=== PATIENT | male | born 1970 | race Caucasian/White ===

== ENCOUNTER → 2023-07-27 10:51 | Outpatient (CLI) | payer OTHER, SELFPAY ==
--- NOTE | 2023-07-27 | DI.MRI.S_ITS ---
PROCEDURE: MR CERVICAL SPINE WO CON INDICATIONS: Paresthesia of skin TECHNIQUE: Noncontrast sagittal T1 spin echo and T2 fast spin echo, sagittal STIR, foraminal oblique sagittal T2 fast spin echo, and axial gradient echo or T2 fast spin echo through the cervical spine. COMPARISON: None. FINDINGS: Image quality: Diagnostic. Alignment and Curvature: There is normal bony alignment. Bone Marrow: Marrow demonstrates normal overall signal. Spinal Cord: Visualized spinal cord has normal size and signal. No cerebellar tonsillar herniation. Paraspinous Soft Tissues: No paravertebral masses. Prevertebral soft tissues are normal in thickness. C2-C3: No significant neuroforaminal or spinal canal stenosis. C3-C4: Minimal loss of disc signal intensity. Degenerative endplate changes. Mild bilateral uncovertebral osteoarthrosis. Shallow broad-based posterior disc osteophyte complex. There is mild spinal canal stenosis. No cord signal abnormality. Mild-moderate bilateral neural foraminal stenosis. C4-C5: Mild degenerative endplate changes. Bilateral facet arthropathy. Bilateral uncovertebral osteoarthrosis. Small broad-based posterior disc osteophyte complex with more focal eccentric to the right disc protrusion . Combination of findings result in moderate-severe spinal canal stenosis. Moderate bilateral neuroforaminal stenosis. No cord signal abnormalities. C5-C6: Mild degenerative endplate changes. Bilateral uncovertebral osteoarthrosis and mild bilateral facet arthropathy. Broad-based posterior disc osteophyte complex with minimal central posterior disc protrusion. Findings result in effacement of the anterior thecal sac, moderate spinal canal stenosis, and mild-moderate bilateral neuroforaminal stenosis. No cord signal abnormalities. C6-C7: Degenerative endplate changes. Bilateral facet arthropathy. Bilateral uncovertebral osteoarthrosis. Slightly eccentric to the left broad-based posterior disc osteophyte complex. There is effacement of the anterior thecal sac with mild spinal canal stenosis. There is left greater than right moderate-severe bilateral neuroforaminal stenosis. C7-T1: Mild degenerative endplate changes. Shallow broad-based posterior disc osteophyte complex. No significant neuroforaminal or spinal canal stenosis. IMPRESSION: Cervical spine without acute abnormalities. Moderate multilevel, multifactorial cervical spondylosis as detailed above by vertebral body level. Findings are most pronounced from C4-5 through C6-7. No cord signal abnormalities. Dictated by: Kailash Leon M.D. on 07/30/2023 at 9:28 Approved by: Kailash Leon M.D. on 07/30/2023 at 9:42
== END ==
PROVIDERS: Referring Provider Preventive Medicine Aerospace Medicine; Visit Provider Preventive Medicine Aerospace Medicine
DX: M47.812 Spondylosis without myelopathy or radiculopathy, cervical region (principal); R20.2 Paresthesia of skin
CPT/HCPCS: 72141

== ENCOUNTER 2023-12-07 13:15 | Emergency (ER) | payer OTHER, SELFPAY ==
[2023-12-07 13:20] VITALS: BP 165/87; PULSE 65; RESP 16; TEMP 36.6; O2SAT 98; BMI 28.5
--- NOTE | 2023-12-07 13:23 | DI.RAD.S_ITS ---
PROCEDURE: XR KNEE LT 3V INDICATIONS: injury/felt pop TECHNIQUE: 3 views of the knee were acquired. COMPARISON: None. FINDINGS: Bones: No fractures or dislocations. No suspicious bony lesions. Mild tricompartmental knee joint degeneration. Soft tissues: No joint effusion. No suspicious soft tissue calcifications. IMPRESSION: 1. No acute bony abnormality or significant effusion. 2. Mild degenerative joint disease. Dictated by: Kassidy Forman M.D. on 12/07/2023 at 13:48 Approved by: Kassidy Forman M.D. on 12/07/2023 at 13:48
--- NOTE | 2023-12-07 14:25 | ED_ITS ---
HPI - Extremity Injury (Lower) <Consuelo Tsai PA-C - Last Filed: 12/07/23 14:57> General Chief Complaint: Extremity Injury, Lower Stated Complaint: tweaked left knee yesterday Time Seen by Provider: 12/07/23 13:38 Mode of arrival: Ambulatory History of Present Illness HPI Narrative: 53-year-old male here with an injury to his left knee. States he was playing when he pivoted and felt a pop in his left knee along with some pain. He rested for a few minutes and then went back to play again in realize that he could not continue playing. he is able to walk but states it is painful. Denies instability. Denies clicking or popping. Denies prior injury to the affected knee. He has not tried taking any medication. He did not fall on his knee and denies any other trauma to the knee. Related Data Allergies Allergy/AdvReac Type Severity Reaction Status Date / Time No Known Drug Allergies Allergy Verified 12/07/23 13:22 Review of Systems <SHERRY Epstein Last Filed: 12/07/23 14:57> Review of Systems ROS Unobtainable: All systems reviewed & are unremarkable except as noted in HPI and below Patient History <Consuelo Tsai PA-C - Last Filed: 12/07/23 14:57> Social History Smoking Status: Former smoker Smoking Status: Former smoker Substance Use Type: does not use Exam <SHERRY Epstein Last Filed: 12/07/23 14:57> Narrative Exam Narrative: GENERAL: Well-developed, well-nourished, appears stated age. In no acute distress HEAD: Atraumatic. Normocephalic. EYES: Pupils equal round and reactive. Extraocular motions intact. No scleral icterus. No injection or drainage. ENT: Nose without bleeding, purulent drainage. Airway patent. NECK: Trachea midline. Non tender RESPIRATORY: Respiratory rate and effort normal EXTREMITIES: No edema or joint tenderness. Normal appearance of the left knee. Normal patella tracking. No clicking or grinding. Limited flexion to 90? due to discomfort. Tenderness over the medial knee (over MCL). No midline tenderness. No ligamentous laxity. Negative anterior drawer. +/- possible positive Antonette's test NEURO: AOx3. SKIN: No rash or erythema of visible areas Initial Vital Signs Initial Vital Signs: Vital Signs Temperature 97.9 F 12/07/23 13:20 Pulse Rate 65 12/07/23 13:20 Respiratory Rate 16 12/07/23 13:20 Blood Pressure 165/87 H 12/07/23 13:20 Pulse Oximetry 98 12/07/23 13:20 Oxygen Delivery Method Room Air 12/07/23 13:20 <DO Rin Davison Last Filed: 12/08/23 07:58> Initial Vital Signs Initial Vital Signs: Vital Signs Temperature 97.9 F 12/07/23 13:20 Pulse Rate 65 12/07/23 13:20 Respiratory Rate 16 12/07/23 13:20 Blood Pressure 165/87 H 12/07/23 13:20 Pulse Oximetry 98 12/07/23 13:20 Oxygen Delivery Method Room Air 12/07/23 13:20 Course <SHERRY Epstein Last Filed: 12/07/23 14:57> Orders Ordered: ED Orders 12/07/23 13:23 XR knee LT 3V Stat Vital Signs Vital signs: Vital Signs - 8 hr 12/07/23 13:20 Temperature 97.9 F Pulse Rate 65 Respiratory Rate 16 Blood Pressure 165/87 H Pulse Oximetry 98 Oxygen Delivery Method Room Air <DO Rin Davison Last Filed: 12/08/23 07:58> Orders Ordered: ED Orders 12/07/23 13:23 XR knee LT 3V Stat Vital Signs Vital signs: Vital Signs - 8 hr 12/07/23 13:20 Temperature 97.9 F Pulse Rate 65 Respiratory Rate 16 Blood Pressure 165/87 H Pulse Oximetry 98 Oxygen Delivery Method Room Air MDM - Extremity Injury (Lower) <SHERRY Epstein Last Filed: 12/07/23 14:57> Imaging Data Extremity x-ray #1: Radiologist's Impression: [address] [address] XRay Report Signed Patient: Tito Bruno MR#: [id number] : 1970 Acct:[id number] Age/Sex: 53 / M Date of Service: 12/07/23 Loc: ED Accession Number: [id number] Procedure: XR knee LT 3V Ordering Provider: Loyda Houston D.O. PROCEDURE: XR KNEE LT 3V INDICATIONS: injury/felt pop TECHNIQUE: 3 views of the knee were acquired. COMPARISON: None. FINDINGS: Bones: No fractures or dislocations. No suspicious bony lesions. Mild tricompartmental knee joint degeneration. Soft tissues: No joint effusion. No suspicious soft tissue calcifications. IMPRESSION: 1. No acute bony abnormality or significant effusion. 2. Mild degenerative joint disease. Dictated by: Kassidy Forman M.D. on 12/07/2023 at 13:48 Approved by: Kassidy Forman M.D. on 12/07/2023 at 13:48 [facility] Narrative Medical decision making narrative: [] Multiple etiologies for patient's symptoms considered including, but not limited to: Knee sprain, meniscus tear, MCL sprain or tear, ACL injury, dislocation Patient's mechanism of injury, normal x-ray, and examination with tenderness over the MCL and possible positive Antonette's test indicates that patient likely has a sprain of the MCL and possibly the medial meniscus. His anterior drawer test was negative. He does not have any signs of instability in the knee. On exam he has no obvious swelling or deformity of the knee. We discussed options including immobilizer versus purchasing a knee brace on his own and he prefers no immobilizer. Recommend rest, ice, elevation, NSAIDs. If no improvement with these conservative measures after 2 weeks I recommend he follow up with his PCP to discuss obtaining an MRI. Patient understands and agrees with this plan Findings and discharge diagnosis discussed with patient followed by verbalization of understanding Return precautions discussed with patient who verbalized understanding of diagnosis and plan Discharge Plan Departure Patient Disposition: Home Clinical Impression: Acute knee pain Qualifiers: Laterality: left Qualified Code(s): M25.562 - Pain in left knee Instructions: DI for Knee Sprain Activity Restrictions/Additional Instructions: Thank you for choosing us to care for you today. Left knee x-ray shows no since of fracture or dislocation. Your exam states that you could possibly have sprained your MCL or medial meniscus. It is also possible that there is a tear of one of these structures. We recommend resting, elevating, icing, taking ibuprofen 600 mg every 6-8 hours for the next 3-5 days. If your knee fails to improve in the next 1-2 weeks with conservative treatment, you will need to see your primary care physician to discuss obtaining an MRI for further evaluation as this is the only way to see if there is a tear of one of your knee ligaments. Stand Alone Forms: Patient Portal/API ED Sign-out <Loyda Houston DO - Last Filed: 12/08/23 07:58> Cosign ED Attending Kenneth Attestation: I was available for consultation.
[2023-12-07 14:53] VITALS: BP 109/72; PULSE 61; RESP 18; O2SAT 97
== END 2023-12-07 14:54 | disposition home or self-care (01) ==
PROVIDERS: Emergency Provider Physician Assistant
DX: M25.562 Pain in left knee (principal); X58.XXXA Exposure to other specified factors, initial encounter
CPT/HCPCS: 73562; 99283

== ENCOUNTER → 2024-01-17 15:45 | Outpatient (CLI) | payer OTHER, SELFPAY ==
--- NOTE | 2024-01-17 | DI.MRI.S_ITS ---
PROCEDURE: MR KNEE LT WO CON INDICATIONS: PAIN IN LEFT KNEE TECHNIQUE: Noncontrast sagittal PD fast spin echo and T2 fast spin echo with fat saturation, sagittal 3-D FLASH with fat saturation; coronal T1 spin echo and PD fast spin echo with fat saturation, and axial PD fast spin echo with fat saturation through the knee. COMPARISON: [facility], CR, XR KNEE LT 3V, 12/07/2023, 13:25. FINDINGS: Image quality: Excellent. Menisci: Oblique tear involving posterior horn of medial meniscus is seen extending to inferior articulating surface. The lateral meniscus is intact. The meniscal root ligaments appear intact. Cruciate ligaments: The anterior cruciate ligament is thickened with intrasubstance T2 hyperintense signal. The posterior cruciate ligament is intact. Medial structures: The medial collateral ligament appears thickened with surrounding soft tissue edema. Visualized portions of the pes anserinus tendons appear normal. No abnormal bursal fluid. Lateral structures: The lateral collateral ligament, long and short heads of the biceps femoris tendon appear intact. The popliteus tendon appears normal. Iliotibial band appears normal. Anterior structures: The quadriceps tendon is intact. Proximal patellar tendinosis is seen. Patellar alignment is normal. No femoral trochlear dysplasia or ventral trochlear prominence. No edema in the infrapatellar fat pad. Bones and cartilage: No bone marrow contusions or fractures. Low-grade chondromalacia in medial femoral tibial compartment and patellofemoral compartment is seen. Joint space: There is small to moderate knee joint fluid. No Lopez's cyst. Normal appearing synovial plicae are incidentally noted. IMPRESSION: 1. Oblique tear involving posterior horn of medial meniscus extending to inferior articulating surface. The lateral meniscus is intact. 2. Low-grade ACL sprain. No ACL rupture. The PCL is intact. 3. Low to moderate grade MCL sprain. 4. Proximal patellar tendinosis. The quadriceps tendon is intact. 5. No marrow edema. No fracture or dislocation. Low-grade chondromalacia in medial femoral tibial compartment and patellofemoral compartment. Small to moderate joint effusion, no loose bodies. Dictated by: Hi Katz M.D. on 01/17/2024 at 18:00 Approved by: Hi Katz M.D. on 01/17/2024 at 18:04
== END ==
DX: S83.242A Other tear of medial meniscus, current injury, left knee, initial encounter (principal); S83.512A Sprain of anterior cruciate ligament of left knee, initial encounter; S83.412A Sprain of medial collateral ligament of left knee, initial encounter; M25.562 Pain in left knee; M22.42 Chondromalacia patellae, left knee; M25.462 Effusion, left knee
CPT/HCPCS: 73721

== ENCOUNTER → 2024-08-08 08:53 | Outpatient (CLI) | payer OTHER, SELFPAY ==
--- NOTE | 2024-08-08 08:55 | DI.MRI.S_ITS ---
PROCEDURE: MR KNEE RT WO CON INDICATIONS: PAIN IN RIGHT KNEE TECHNIQUE: Noncontrast sagittal PD fast spin echo and T2 fast spin echo with fat saturation, sagittal 3-D FLASH with fat saturation; coronal T1 spin echo and PD fast spin echo with fat saturation, and axial PD fast spin echo with fat saturation through the knee. COMPARISON: [facility], CR, XR KNEE LT 3V, 12/07/2023, 13:25. [facility], MR, MR KNEE LT WO CON, 01/17/2024, 15:56. FINDINGS: Image quality: Diagnostic Menisci: Medial: Small focal free edge truncation in the body. Lateral: Small horizontal tear which may be degenerative. Cruciate ligaments: Intact Medial structures: MCL: Intact Pes anserine tendons: Intact Semimembranosus: Intact Lateral structures: LCL: Mild proximal signal abnormality and thickening Biceps femoris: Intact IT band: Intact Popliteus tendon: Mild insertional tendinopathy Anterior structures: Extensor mechanism: Intact Fat pads: No significant edema Medial retinaculum: Intact. Trochlea: Unremarkable morphology. Bone and joint: Bones: No acute fracture Cartilage: No full-thickness defect. There is [id number] heterogeneity in the patellofemoral compartment. Focal fissure is seen in the femoral trochlea, without subchondral edema. Mild heterogeneity is seen in the medial and lateral lateral compartments. Mild scattered osteophytes. Joint space: Trace joint fluid Lopez's cyst: None Soft tissues: No significant vascular or other soft tissue pathology. IMPRESSION: Cruciate and collateral ligaments are intact. Possible mild sprain and evidence of scarring/remodeling of the LCL. Mild popliteus insertional tendinopathy. Small lateral meniscus horizontal tear which may be degenerative. Small area of free edge truncation in the medial meniscal body (06/22) Mild overall degenerative changes, including a focal cartilaginous fissure in the femoral trochlea without subchondral edema. Trace joint effusion Dictated by: Kimani James M.D. on 08/11/2024 at 8:41 Approved by: Kimani James M.D. on 08/11/2024 at 8:47
== END ==
LOC: MRI 08:54
PROVIDERS: Referring Provider Student in an Organized Health Care Education/Training Program; Visit Provider Student in an Organized Health Care Education/Training Program
DX: S83.281A Other tear of lateral meniscus, current injury, right knee, initial encounter (principal); M25.561 Pain in right knee
CPT/HCPCS: 73721

== ENCOUNTER → 2024-12-01 06:54 | Outpatient (CLI) | payer OTHER, SELFPAY ==
--- NOTE | 2024-12-01 06:55 | DI.US.S_ITS ---
PROCEDURE: US ABDOMEN LIMITED INDICATIONS: upper quadrant pain TECHNIQUE: Real-time scanning was performed of the abdominal and retroperitoneal organs, with image documentation. COMPARISON: None. FINDINGS: Liver: Liver is normal in size. Steatosis is present with focal fat sparing. Gallbladder: Multiple, primarily mobile foci of echogenicity are present. No wall thickening. No pericholecystic edema. Negative sonographic King's sign. Biliary ducts: Intrahepatic bile ducts are non-dilated. Extrahepatic bile duct caliber is not well seen.. Normal is 6-7 mm or less in diameter, or 10 mm or less post-cholecystectomy. Pancreas: Visualized portions of the pancreas are sonographically normal. Miscellaneous: No free abdominal fluid. IMPRESSION: Cholelithiasis without imaging appearance of cholecystitis. Dictated by: Wen Velasquez M.D. on 12/01/2024 at 9:14 Approved by: Wen Velasquez M.D. on 12/01/2024 at 9:15
== END ==
LOC: US 06:54
DX: K80.20 Calculus of gallbladder without cholecystitis without obstruction (principal); R10.11 Right upper quadrant pain
CPT/HCPCS: 76705

== ENCOUNTER 2025-03-06 13:59 | Emergency (ER) | payer OTHER, SELFPAY ==
--- NOTE | 2025-03-06 14:12 | DI.RAD.S_ITS ---
PROCEDURE: XR CHEST 1V INDICATIONS: Chest Pain TECHNIQUE: One view of the chest was acquired. COMPARISON: None. FINDINGS: Surgical changes and devices: None. Lungs and pleura: Ill-defined opacification in left retrocardiac region is seen concerning for left lower lobe infiltrate. No pleural effusions or pneumothorax. Mediastinum: Mediastinal contours appear normal. Heart size is normal. Bones and chest wall: No suspicious bony lesions. Overlying soft tissues appear unremarkable. IMPRESSION: Finding is concerning for developing left lower lobe infiltrate. Clinical correlation and follow-up is recommended. No pleural effusion or pneumothorax. Dictated by: Hi Katz M.D. on 03/06/2025 at 15:17 Approved by: Hi Katz M.D. on 03/06/2025 at 15:17
--- NOTE | 2025-03-06 14:12 | EKG_ITS ---
[address] [address] [address], [place] [address] Test Date: 2025-03-06 Pat Name: Tito Bruno Department: Room: Gender: Male [place] Manager: PRIYANKA : 1970 Requested By: Order Number: [id number] Reading MD: Nelson Mccurdy Measurements Intervals [place] Rate: 67 P: 63 GA: 160 QRS: -6 QRSD: 94 T: 13 QT: 376 QTc: 397 Interpretive Statements Normal sinus rhythm Inferior infarct , age undetermined Electronically Signed On 03-13-2025 7:16:55 PDT by Nelson Mccurdy
[2025-03-06 14:13] VITALS: BP 124/59; PULSE 73; RESP 17; TEMP 36.6; O2SAT 99; BMI 30.2
[2025-03-06 14:33] LABS: Add Manual Diff / Slide Review NO; Hematocrit 41.6 % (41-53); Hemoglobin 13.9 g/dL (13.5-17.5); Lymphocytes Absolute Auto 2300 /uL (1100-4500); Mean Corpuscular HGB Conc 33.5 % (30-36); Mean Corpuscular Hemoglobin 29.5 PG (26-34); Mean Corpuscular Volume 88.2 fL (80-100); Platelet Count 224 X10^3/uL (150-400)
[2025-03-06 14:38] LABS: INR 1.2 (0.9-1.3); Prothrombin Time 13.9 SECONDS (9.4-12.5)
[2025-03-06] MEDS: ASPIRIN 81 MG CHEW TAB 324 MG PO (14:39)
[2025-03-06 14:41] LABS: PTT Partial Thromboplastin Tim 27 SECONDS (25.1-36.5)
[2025-03-06 14:50] LABS: Alanine Aminotransferase 20 IU/L (<50); Albumin 4.1 g/dL (3.5-5.0); Albumin Globulin Ratio 1.4 (1.0-2.8); Alkaline Phosphatase 61 U/L (38-126); Blood Urea Nitrogen 17 mg/dL (9-20); Calcium 9.3 mg/dL (8.4-10.2); Carbon Dioxide 27 mmol/L (22-32); Chloride 103 mmol/L (98-107); Creatine Kinase 100 U/L (55-170); Estimated Glomerular Filt Rate > 60 mL/min (>60); Globulin 2.9 g/dL (1.7-4.1); Glucose 100 mg/dL (70-99); HEMOLYSIS < 15 (0-50); Lipase 37 U/L (23-300); Magnesium 1.8 mg/dL (1.6-2.3); Potassium 4.0 mmol/L (3.4-5.1); Sodium 137 mmol/L (137-145); Total Protein 7.0 g/dL (6.3-8.2)
[2025-03-06 15:00] LABS: Influenza A - CEPHEID Flu A NEGATIVE (NEGATIVE); Influenza B - CEPHEID Flu B NEGATIVE (NEGATIVE)
[2025-03-06 15:01] LABS: NT-proBNP (BNP-Adult 18+) 184 pg/mL (<125); Troponin I < 0.012 ng/mL (0.01-0.034)
[2025-03-06 15:10] LABS: COVID-19 CEPHEID 4-PLEX PCR Negative (Negative)
--- NOTE | 2025-03-06 16:44 | ED_ITS ---
HPI - Chest Pain General Chief Complaint: Chest Pain Stated Complaint: Viscectomy yesterday;Poss intubated;chest pressure Time Seen by Provider: 03/06/25 16:27 Source: patient Mode of arrival: Ambulatory History of Present Illness HPI narrative: 54-year-old male who had a vasectomy done over at [facility] yesterday under what appear sedation presents with a sudden cough and congestion discomfort in the center of his chest that started yesterday and has lingered into today. Yesterday evening the patient had some chills as well. Patient also has some slight shortness of breath no other symptoms. Related Data Previous Rx's ?Medication ?Instructions ?Recorded azithromycin 250 mg tablet 250 mg PO DAILY 4 days #4 t abs 03/06/25 Allergies Allergy/AdvReac Type Severity Reaction Status Date / Time No Known Drug Allergies Allergy Verified 03/06/25 14:13 Patient History Social History Smoking Status: Never smoker Smoking Status: Never smoker Exam Narrative Exam Narrative: General: Healthy appearing, in no acute distress. Able to give a complete and coherent history. Well-nourished well-developed HEENT: Moist mucous membranes, normal sclera with reactive pupils, Neck: No JVD, supple Respiratory: Lungs are clear to auscultation, no wheezing no rales no rhonchi. Full and symmetrical air movement Cardiac: Regular rate and rhythm no murmurs no bruits Abdomen: Soft, nontender, no rebound or guarding, no flank pain Skin: Warm and dry, no rashes Neurologic: Grossly neurologically intact with no obvious asymmetries or abnormalities Extremities: No trauma, well perfused Psych: Cooperative, appropriate insight and affect Initial Vital Signs Initial Vital Signs: Vital Signs Temperature 98 F 03/06/25 14:13 Pulse Rate 73 03/06/25 14:13 Respiratory Rate 17 03/06/25 14:13 Blood Pressure 124/59 L 03/06/25 14:13 Pulse Oximetry 99 03/06/25 14:13 Oxygen Delivery Method Room Air 03/06/25 14:13 Course Course Course Narrative: We will workup the patient for chest pain. Orders Ordered: ED Orders 03/06/25 14:05 Covid-19 + FLU A/B + RSV - PCR Stat 03/06/25 14:12 XR chest 1V Stat EKG-12 Lead Stat 03/06/25 14:20 Complete Blood Count AUTO DIFF Stat Comprehensive Metabolic Panel Stat Lipase Stat Magnesium Stat NT-proBNP (BNP-Adult 18+) Stat PTT Partial Thromboplastin Jose Stat Prothrombin Time INR Stat Troponin & CK Cardiac Panel Stat 03/06/25 17:05 Blood Culture Stat Discontinued Medications Aspirin (Aspirin 81 Mg Chew Tab) 324 mg PO NOW ONE Stop: 03/06/25 14:12 Last Admin: 03/06/25 14:39 Dose: 324 mg Documented By: SAMPSON Azithromycin (Azithromycin 250 Mg Tablet) 500 mg PO NOW ONE Stop: 03/06/25 16:44 Last Admin: 03/06/25 17:25 Dose: 500 mg Documented By: SAMPSON Ceftriaxone Sodium 2,000 mg/ (Sodium Chloride) 100 mls @ 200 mls/hr IV NOW ONE Stop: 03/06/25 16:41 Last Infusion: 03/06/25 18:19 Dose: Infused Documented By: Admin: 03/06/25 17:26 Dose: 200 mls/hr Documented By: SAMPSON Sodium Chloride (Normal Saline 0.9%) 1,000 mls @ 1,000 mls/hr IV BOLUS ONE Stop: 03/06/25 17:40 Last Admin: 03/06/25 17:26 Dose: 1,000 mls/hr Documented By: SAMPSON Reevaluation(s) Reevaluation #1: Upon re-evaluation, patient was shown to have an elevated WBC and a chest x-ray showed a new left lower infiltrate so most likely pneumonia picture. Vital Signs Vital signs: Vital Signs - 8 hr 03/06/25 14:13 Temperature 98 F Pulse Rate 73 Respiratory Rate 17 Blood Pressure 124/59 L Pulse Oximetry 99 Oxygen Delivery Method Room Air MDM - Chest Pain Differential Diagnosis Differential diagnosis: Likely atypical chest pain, costochondritis and other (pneumonia) Lab Data 03/06/25 14:20 03/06/25 14:20 Labs: Lab Results 03/06/25 03/06/25 Range/Units 14:05 14:20 WBC 20.0 H (4.5-11.0) X10^3/uL RBC 4.71 (4.5-5.9) X10^6/uL Hgb 13.9 (13.5-17.5) g/dL Hct 41.6 (41-53) % MCV 88.2 (80-100) fL MCH 29.5 (26-34) PG MCHC 33.5 (30-36) % RDW 13.4 (11.6-14.8) % Plt Count 224 (150-400) X10^3/uL Neut % (Auto) 83.0 H (50-75) % Lymph % (Auto) 11.3 L (25-40) % [place] % (Auto) 4.6 (3-14) % Eos % (Auto) 0.9 L (2-4) % Baso % (Auto) 0.2 (0-2) % Neut # (Auto) 92461 H (0553-1061) /uL Lymph # (Auto) 2300 (7787-7057) /uL [place] # (Auto) 900 (0-900) /uL Eos # (Auto) 200 (0-450) /uL Baso # (Auto) 0 (0-100) /uL PT 13.9 H (9.4-12.5) SECONDS INR 1.2 (0.9-1.3) APTT 27 (25.1-36.5) SECONDS Sodium 137 (137-145) mmol/L Potassium 4.0 (3.4-5.1) mmol/L Chloride 103 (98-107) mmol/L Carbon Dioxide 27 (22-32) mmol/L BUN 17 (9-20) mg/dL Creatinine 1.04 (0.66-1.25) mg/dL Estimated GFR > 60 (>60) mL/min BUN/Creatinine Ratio 16.3 (6-22) Glucose 100 H (70-99) mg/dL Calcium 9.3 (8.4-10.2) mg/dL Magnesium 1.8 (1.6-2.3) mg/dL Total Bilirubin 1.4 H (0.2-1.3) mg/dL AST 24 (17-59) IU/L ALT 20 (<50) IU/L Alkaline Phosphatase 61 (38-126) U/L Total Creatine Kinase 100 (55-170) U/L Troponin I < 0.012 (0.01-0.034) ng/mL NT-Pro-B Natriuret Pep 184 H (<125) pg/mL Total Protein 7.0 (6.3-8.2) g/dL Albumin 4.1 (3.5-5.0) g/dL Globulin 2.9 (1.7-4.1) g/dL Albumin/Globulin Ratio 1.4 (1.0-2.8) Lipase 37 (23-300) U/L SARS-CoV-2 (PCR) Negative (Negative) Influenza A (RT-PCR) Flu a negative (NEGATIVE) Influenza B (RT-PCR) Flu b negative (NEGATIVE) RSV (PCR) Negative (Negative) Imaging Data Chest x-ray: Radiologist's Impression: Finding is concerning for developing left lower lobe infiltrate. Clinical correlation and follow-up is recommended. No pleural effusion or pneumothorax. MDM Narrative Medical decision making narrative: Patient will be treated as a pneumonia picture. Given 2 g of Rocephin and 500 mg p.o. azithromycin. Patient will complete pneumonia course of p.o. azithromycin. Await blood cultures. Patient advised to follow up if any worsening symptoms. Discharge Plan Departure Patient Disposition: Home Clinical Impression: Pneumonia Qualifiers: Pneumonia type: due to unspecified organism Laterality: left Lung location: l ower lobe of lung Qualified Code(s): J18.9 - Pneumonia, unspecified organism Instructions: Pneumonia-Adult Activity Restrictions/Additional Instructions: Take meds as prescribed. Follow up if worsening shortness of breath. Follow up with PCP after completion of antibiotics. Prescriptions: New azithromycin 250 mg tablet 250 mg PO DAILY 4 Days Qty: 4 0RF Referrals: [facility] Stand Alone Forms: Patient Portal/API
[2025-03-06 17:00] VITALS: PULSE 76; O2SAT 97
[2025-03-06 17:01] VITALS: BP 117/63; PULSE 78; O2SAT 97
[2025-03-06] MEDS: AZITHROMYCIN 250 MG TABLET 500 MG PO (17:25)
[2025-03-06] MEDS: SODIUM CHLORIDE 0.9% 1,000 ML 1000 ML IV (17:26)
[2025-03-06] MEDS: cefTRIAXone 2,000 MG in SODIUM CHLORIDE 0.9% 100 ML 200 MG IV (17:26)
[2025-03-06 17:30] VITALS: BP 106/57; PULSE 76; O2SAT 99
[2025-03-06 18:00] VITALS: BP 106/58; PULSE 79; O2SAT 100
== END 2025-03-06 19:00 | disposition home or self-care (01) ==
PROVIDERS: Emergency Provider Family Medicine
DX: J18.9 Pneumonia, unspecified organism (principal)
CPT/HCPCS: 36415; 71045; 80053; 82550; 83690; 83735; 83880; 84484; 85025; 85610; 85730; 87040; 87637; 93005; 96365; 99284; J0696